=== PATIENT | female | born 1985 | race Two or more races ===

== ENCOUNTER 2025-02-11 16:53 | Emergency (ER) | payer MEDICAID, SELFPAY ==
[2025-02-11 16:54] VITALS: BMI 20.9
[2025-02-11 17:28] VITALS: BP 138/77; PULSE 81; RESP 16; TEMP 37; O2SAT 98
--- NOTE | 2025-02-11 17:53 | PD.EDSKIN ---
ED Skin Abcess FB-RME/HPI General Chief complaint: Skin/Abscess/Foreign Body Stated complaint: I HAVE CELLULITIS LEFT ARM x 4 DAYS Time Seen by Provider: 02/11/25 17:02 Arrival date/time: 02/11/25 16:53 This is a case of 39-year-old female who came in in the emergency room due to painful lump on the left forearm patient have history of lipoma with excision patient is fine until 4 days prior to arrival in the emergency room patient noted to have a lump on the left forearm with some redness and swelling no discharge patient went to the clinic and was given ceftriaxone but no oral antibiotic due to persistence of the pain and redness and swelling this patient decided to start consult here in the emergency room Related Data Previous Rx's ?Medication ?Instructions ?Recorded cephalexin 500 mg capsule 500 mg PO QID #40 caps 02/11/25 mupirocin 2 % topical ointment 1 applic topical BID #22 grams 02/11/25 sulfamethoxazole 800 1 tab PO Q12H #20 tabs 02/11/25 mg-trimethoprim 160 mg tablet (Bactrim DS) Allergies Allergy/AdvReac Type Severity Reaction Status Date / Time No Known Allergies Allergy Verified 02/11/25 16:56 Course Vital Signs Vital signs: Vital Signs Temperature 98.6 F 02/11/25 17:28 Pulse Rate 81 02/11/25 17:28 Respiratory Rate 16 02/11/25 17:28 Blood Pressure 138/77 H 02/11/25 17:28 Pulse Oximetry (%) 98 02/11/25 17:28 Oxygen Delivery Method Room Air 02/11/25 17:28 Discharge Plan Plan Patient Disposition: HOME (Self Care) Prescriptions/Referrals Prescriptions/Med Rec: New cephalexin 500 mg capsule 500 mg PO QID Qty: 40 0RF sulfamethoxazole-trimethoprim [Bactrim DS] 800-160 mg tablet 1 tab PO Q12H Qty: 20 0RF mupirocin 2 % ointment 1 applic topical BID Qty: 22 0RF Referrals: Duran Kaplan MD [Primary Care Provider] - In 1 week Problem List Clinical Impression: Abscess of forearm, left Patient/Caregiver Discharge Instructions Education Materials: ED Abscess Antibiotic ... Additional Instructions: Follow-up with your primary care physician in 2 days for reevaluation worsening symptoms or any emergent concern call 911 or go to the nearest emergency room return in the emergency room in 2 days for reevaluation and possible incision and drainage take your medication as directed finish the course of antibiotic keep the wound clean and dry Print Language: Eritrean Stand Alone Forms: Lauren Award Info., Patient Portal Info Letter PA/FLEET MAINTENANCE MANAGER Supervising Physician PA/FLEET MAINTENANCE MANAGER Supervising Physician: dr [email or web address]
== END 2025-02-11 18:42 | disposition home or self-care (01) ==
PROVIDERS: Emergency Provider Emergency Medicine; PCP Family Medicine
DX: L02.414 Cutaneous abscess of left upper limb (principal)
CPT/HCPCS: 99281